=== PATIENT | female | born 1995 | race Caucasian/White ===

== ENCOUNTER 2023-08-09 11:42 | Emergency (ER) | payer OTHER ==
[2023-08-09 12:45] VITALS: BP 111/73; PULSE 89; RESP 17; TEMP 98.5; BMI 34.9
== END 2023-08-09 14:55 | disposition home or self-care (01) ==
LOC: JER 11:42
DX: Z04.1 Encounter for examination and observation following transport accident (principal); V79.50XA Passenger on bus injured in collision with unspecified motor vehicles in traffic accident, initial encounter; Y93.I9 Activity, other involving external motion; Y92.410 Unspecified street and highway as the place of occurrence of the external cause
CPT/HCPCS: 99281-25